=== PATIENT | female | born 1995 | race Hispanic/Latino ===

== ENCOUNTER 2019-08-02 00:50 | Inpatient (IN) | payer BC ==
[~2019-08-02] VITALS: Ht 160 cm; Wt 65.3 kg
[2019-08-02 01:05] VITALS: BP 139/83
[2019-08-02] MEDS: OXYTOCIN-LR 20 UNITS/1000 ML 1,000 ML IV SCH ×3 (01:15→02:15)
[2019-08-02 01:19] LABS: BASOPHILS % (AUTO) 0.3 % (0.0-5.0); EOSINOPHILS % (AUTO) 0.4 % (0.0-8.0); HEMATOCRIT 30.9 % (36-48); LYMPHOCYTES % (AUTO) 10.9 % (21.0-51.0); MEAN CORPUSCULAR HEMOGLOBIN 27.4 pg (27.0-33.0); MEAN CORPUSCULAR VOLUME 83.1 fL (79-99); MONOCYTES % (AUTO) 5.6 % (3.0-13.0); NEUTROPHILS % (AUTO) 82.3 % (40.0-77.0); PLATELET COUNT (AUTO) 145 K/uL (130-400); RED BLOOD CELL COUNT(AUTO) 3.72 MIL/uL (4.00-5.50); RED CELL DISTRIBUTION WIDTH 12.5 % (11.0-15.5); WHITE BLOOD COUNT (AUTO) 10.1 K/uL (4.8-10.8)
[2019-08-02] MEDS ORDERED: LIDOCAINE HCL 1% 20 ML VIAL ONE (01:22)
[2019-08-02 01:26] LABS: CREATININE 0.8 mg/dL (0.5-1.5); POTASSIUM 3.6 mmol/L (3.5-5.1)
[2019-08-02 01:33] LABS: ALBUMIN 2.8 g/dL (3.5-5.0); BILIRUBIN,TOTAL 0.4 mg/dL (0.2-1.0); TOTAL PROTEIN, SERUM 7.5 g/dL (6.0-8.3)
[2019-08-02 01:49] LABS: APPEARANCE,URINE Clear (CLEAR); BILIRUBIN,URINE Negative (NEGATIVE); COLOR,URINE Yellow (YELLOW); GLUCOSE, URINE (UA) Negative (NEGATIVE); KETONES,URINE >=80 mg/dL (NEGATIVE); LEUKOCYTE ESTERASE ,URINE Trace (NEGATIVE); NITRATE,URINE Negative (NEGATIVE); OCCULT BLOOD,URINE Negative (NEGATIVE); PROTEIN,URINE POS 2+ mg/dL (NEGATIVE)
[2019-08-02 01:57] LABS: AMPHET/METH SCREEN,URINE NEGATIVE (NEGATIVE); BARBITURATE SCREEN, URINE NEGATIVE (NEGATIVE); BENZODIAZEPINES SCREEN,URINE NEGATIVE (NEGATIVE); CANNABINOID SCREEN,URINE NEGATIVE (NEGATIVE); COCAINE SCREEN,URINE NEGATIVE (NEGATIVE); OPIATE SCREEN,URINE NEGATIVE (NEGATIVE); PHENCYCLIDINE SCREEN,URINE NEGATIVE (NEGATIVE)
[2019-08-02] MEDS ORDERED: DIPH,PERTUSS(ACELL),TET VAC/PF 0.5 ML VIAL IM PRN (02:00)
[2019-08-02] MEDS ORDERED: LANOLIN 30GM OINTMENT TP PRN (02:00)
[2019-08-02] MEDS ORDERED: ACETAMINOPHEN-CODEINE 300/30MG TAB PO PRN (02:00)
[2019-08-02] MEDS ORDERED: WITCH HAZEL 1 PAD TP PRN (02:00)
[2019-08-02] MEDS ORDERED: BENZOCAINE/LANOLIN/ALOE VERA 60 ML AEROSOL TP PRN (02:00)
[2019-08-02 02:09] LABS: BACTERIA,URINE None Seen /HPF (None Seen); RBC,URINE None Seen /HPF (0-1); SQUAMOUS EPITHELIAL CELL,UR Rare /HPF (0-2); WBC,URINE None Seen /HPF (0-1)
[2019-08-02] MEDS ORDERED: IBUPROFEN 600 MG TABLET ONE (02:11)
[2019-08-02 02:28] LABS: INR 0.86 (0.85-1.15); PARTIAL THROMBOPLASTIN TIME 28.2 SEC (26.3-35.5); PROTHROMBIN TIME 9.3 SEC (9.6-11.6)
[2019-08-02] MEDS ORDERED: PREN1TAB80 PO (04:19)
--- NOTE | 2019-08-02 04:27 | NUR ---
Spouse at bedside, pt holding skin to skin & with good latch noted. Addendum: 08/02/19 at 0428 by ZOE MCKEON RN RN Amended: Links added.
[2019-08-02 05:30] VITALS: BP 137/72
[2019-08-02] MEDS ORDERED: ACETAMINOPHEN 325 MG TAB ONE (05:42)
--- NOTE | 2019-08-02 05:45 | NUR ---
Transferring to 111 via wheelchair for comfort. Spouse accompanying pt and in open crib. Oriented to room, bed controls & phone to call nursery; bed down, side rails up times two & in open crib at bedside. Pt voices understanding & agrees to teaching.
[2019-08-02] MEDS: DOCUSATE SODIUM 100 MG CAP PO SCH ×2 (08:19→21:17)
[2019-08-02 11:00] VITALS: BP 141/88
--- NOTE | 2019-08-02 12:30 | NUR ---
ROUNDING DR. HOWIE ARGUELLES AT BEDSIDE TO ASSESS AND TALK TO PT.
[2019-08-02 16:00] VITALS: BP 123/72
[2019-08-02 17:33] LABS: HEMATOCRIT 33.4 % (36-48); MEAN CORPUSCULAR HEMOGLOBIN 27.5 pg (27.0-33.0); MEAN CORPUSCULAR HGB CONC 32.9 g/dL (32.0-36.0); MEAN CORPUSCULAR VOLUME 83.5 fL (79-99); PLATELET COUNT (AUTO) 195 K/uL (130-400); RED CELL DISTRIBUTION WIDTH 12.5 % (11.0-15.5); WHITE BLOOD COUNT (AUTO) 13.6 K/uL (4.8-10.8)
[2019-08-02 20:13] VITALS: BP 118/68
[2019-08-02] MEDS: IBUPROFEN 800 MG TAB PO PRN (21:28)
[2019-08-02 23:15] VITALS: BP 135/76
[2019-08-03] MEDS: OXYTOCIN-LR 20 UNITS/1000 ML 1,000 ML IV SCH (02:00)
[2019-08-03 03:34] VITALS: BP 129/72
[2019-08-03] MEDS ORDERED: DIPH,PERTUSS(ACELL),TET VAC/PF 0.5 ML VIAL IM ONE ×2 (05:15→05:26)
[2019-08-03] MEDS: IBUPROFEN 800 MG TAB PO PRN ×2 (05:40→17:05)
[2019-08-03 07:31] VITALS: BP 137/83
--- NOTE | 2019-08-03 07:40 | NUR ---
PATIENT IS AWAKE AND ALERT AND C/O MILD CRAMPING. AT THIS TIME AND BONDING WELL WITH .
[2019-08-03] MEDS: DOCUSATE SODIUM 100 MG CAP PO SCH ×2 (09:06→20:51)
[2019-08-03 11:39] VITALS: BP 133/63
--- NOTE | 2019-08-03 12:40 | NUR ---
DR. ARGUELLES ROUNDED AND ORDER FOR DISCHARGE GIVEN FOR A.M. PATIENT IS STABLE AND DENIES PAIN AT THIS TIME.
[2019-08-03 16:00] VITALS: BP 137/87
--- NOTE | 2019-08-03 17:00 | NUR ---
PATIENT NURSING BABY AND WAS MEDICATED WITH MOTRIN FOR CRAMPING.
--- NOTE | 2019-08-03 19:17 | NUR ---
BEDSIDE REPORT GIVEN TO Tamera COBB RN AND PATIENT CARE TRANSFERED AT THIS TIME.
[2019-08-03 19:40] VITALS: BP 125/62
[2019-08-03 23:18] VITALS: BP 130/74
[2019-08-04 03:27] VITALS: BP 129/76
[2019-08-04 07:20] VITALS: BP 130/81
[2019-08-04] MEDS: DOCUSATE SODIUM 100 MG CAP PO SCH (08:58)
[2019-08-04] MEDS: IBUPROFEN 800 MG TAB PO PRN (08:58)
--- NOTE | 2019-08-04 12:00 | NUR ---
DISCHARGE PT LEFT UNIT VIA WHEELCHAIR, WITH BABY IN ARMS, ACCOMPANIED BY SIGNIFICANT OTHER. DENIED PAIN AND HAD NO COMPLAINTS. BABY STRAPPED IN CAR SEAT. PT AND BABY TRANSPORTED BY PERSONAL VEHICLE.
[2019-08-05 07:14] LABS: HEPATITIS Bs ANTIGEN SCREEN P Negative (Negative)
== END 2019-08-04 12:00 | disposition home or self-care (01) | DRG 807 ==
LOC: EDH 00:50 → LDH 00:51 → WSH 05:41
PROC: 10E0XZZ Delivery of Products of Conception, External Approach (ICD-10-PCS; principal; 2019-08-02)
PROC: 0KQM0ZZ Repair Perineum Muscle, Open Approach (ICD-10-PCS; 2019-08-02)
PROC: 3E0234Z Introduction of Serum, Toxoid and Vaccine into Muscle, Percutaneous Approach (ICD-10-PCS; 2019-08-02)
DX: O98.32 Other infections with a predominantly sexual mode of transmission complicating childbirth (principal); Z37.0 Single live birth; O70.1 Second degree perineal laceration during delivery; Z3A.37 37 weeks gestation of pregnancy; Z23 Encounter for immunization; A63.0 Anogenital (venereal) warts
CPT/HCPCS: 36415; 80053; 80305; 81001; 83605; 84550; 85025; 85027; 85384; 85610; 85730; 86592; 86701; 86850; 86900; 86901; 87040; 87070; 87076; 87077; 87088; 87186; 87340; 87390; 87804; 90715; G0378; J2590